=== PATIENT | male | born 1995 | race Hispanic/Latino ===

== ENCOUNTER 2023-06-21 19:39 | Emergency (ER) | payer SELFPAY ==
[2023-06-21 21:11] LABS: SARS-CoV-2 NAA Rapid Test Not Detected (NotDetected)
[2023-06-21] MEDS ORDERED: Acetaminophen 500 MG TAB ONE (21:12)
[2023-06-21] MEDS ORDERED: Ketorolac Tromethamine 30 MG/ML VIAL ONE (21:12)
[2023-06-21] MEDS ORDERED: Ondansetron ODT 4 MG TAB ONE (21:13)
== END 2023-06-21 21:35 | disposition home or self-care (01) ==
LOC: ERS 19:39
DX: J10.1 Influenza due to other identified influenza virus with other respiratory manifestations (principal)
CPT/HCPCS: 87081; 87430; 96372; 99283; J1885; Q0162